=== PATIENT | male | born 1955 | race Caucasian/White ===

== ENCOUNTER → 2019-03-25 07:21 | Outpatient (CLI) | payer MEDICARE | END | disposition home or self-care (01) | LOC: D.US 07:21 | PROVIDERS: ATTEND Family Medicine | DX: R60.0 Localized edema (principal) ==

== ENCOUNTER 2020-04-30 07:00 | Day surgery (SDC) | payer MEDICARE ==
[2020-04-27 10:01] LABS: HEMATOCRIT 47.4 % (42.0-54.0); HEMOGLOBIN 16.2 g/dL (13.5-17.5); MCH 33.9 pg (26.0-34.0); MCHC 34.2 g/dL (31.0-37.0); MCV 99.2 fL (80.0-100.0); MEAN PLATELET VOLUME 9.7 fL (7.4-10.4); RBC 4.78 10x6/uL (4.20-6.10); RDW 13.7 % (11.5-14.5); WBC 9.7 10x3/uL (4.8-10.8)
[2020-04-27 10:16] LABS: APTT 29.7 SECONDS (22.8-39.4); PROTIME 13.2 SECONDS (11.6-15.0)
[~2020-04-30] VITALS: Ht 180.3 cm; Wt 99.8 kg
[~2020-04-30 07:00] MED LIST: AGGRENOX 200/251 CAP PO; ALTACE10 MG PO; AZELASTINE137 MCG/0. NASAL; CRESTOR40 MG PO; FUROSEMIDE20 MG PO; KLONOPIN1 MG PO; LEXAPRO10 MG PO; LIPITOR40 MG PO; LOPRESSOR25 MG PO; NORVASC5 MG PO; PLAVIX75 MG PO
[2020-04-30 07:49] VITALS: BP 138/74; Ht 180.3 cm; Wt 99.8 kg
[2020-04-30] MEDS ORDERED: HYDROCODON-ACE1 EA10 PO (12:10)
--- NOTE | 2020-04-30 16:02 | NUR ---
1330 IV DC'D. CATHETER TIP INTACT. NO BLEEDING AT SITE. BANDAID APPLIED.
--- NOTE | 2020-05-03 07:08 | OP ---
PATIENT NAME: RENAN ECHEVERRIA MEDICAL RECORD: [id number] :53 LOCATION:D.OPS ADMISSION DATE: SURGEON: XIOMY VILLANUEVA MD DATE OF OPERATION: 04/30/2020 PREOPERATIVE DIAGNOSIS: Left olecranon bursitis. POSTOPERATIVE DIAGNOSIS: Left olecranon bursitis. PROCEDURE: Left olecranon bursectomy. SURGEON: Xiomy Villanueva MD STATE DIRECTOR: JOSE Wadsworth INTRAOPERATIVE COMPLICATIONS: None. SUMMARY OF PATHOLOGIC FINDINGS: The patient had what felt to be more like a nodular firm bursitis then fluid-filled bursitis, it perhaps is more of a bursal mass; however, sent in its entirety to pathology for further evaluation. OPERATIVE SUMMARY IN DETAIL: After obtaining the appropriate preoperative orthopedic surgery consent as well as anesthetic consultation, evaluation and clearance, the patient was brought to the operating room and placed on the operating table in supine position. After general laryngeal mask airway was administered, tourniquet was placed about the proximal aspect of the left upper extremity. Left upper extremity was then prepped and draped in routine sterile fashion. The arm was elevated and exsanguinated, tourniquet inflated to 250 mmHg. At this point, appropriate timeout was taken and agreed upon by all given the patient's unique identifiers. Incision was made directly over the mass. It was taken down both proximally, distally, laterally, and medially with very fine subcutaneous dissection in order to take the mass out in total. It was gently excised completely and sent for permanent specimen without rupturing or cutting into the mass/bursal sac itself. Wound was then copiously irrigated and closed with 2-0 Vicryl followed by 3-0 Prolene in interrupted fashion. Sterile dressings were applied. Tourniquet was deflated. The patient was awakened and taken to the recovery room in stable condition. All final needle and sponge counts were correct. TRANSINT:[id number] Voice Confirmation ID: [id number] DOCUMENT ID: [id number] XIOMY VILLANUEVA MD at 0708 CC: [id number] DICTATION DATE: 05/02/20 1302 BUS ESCORT: 05/02/20 2257 [facility] 04/30/20 [place] [address]
== END 2020-04-30 13:40 | disposition home or self-care (01) ==
LOC: D.OPS 07:00 → D.PAN 09:15 → D.OPS 10:05
PROVIDERS: Anesthesiology; ATTEND Orthopaedic Surgery
DX: M70.22 Olecranon bursitis, left elbow (principal); M25.522 Pain in left elbow

== ENCOUNTER 2020-05-31 05:39 | Day surgery (SDC) | payer MEDICARE ==
[~2020-05-31] VITALS: Ht 180.3 cm; Wt 102.1 kg
[~2020-05-31 05:39] MED LIST changes: +HYDROCODON-ACE1 EA10 PO
[2020-05-31 05:54] LABS: HEMATOCRIT 47.6 % (42.0-54.0); HEMOGLOBIN 16.1 g/dL (13.5-17.5); MCH 33.8 pg (26.0-34.0); MCHC 33.8 g/dL (31.0-37.0); MEAN PLATELET VOLUME 9.3 fL (7.4-10.4); RBC 4.76 10x6/uL (4.20-6.10); RDW 14.4 % (11.5-14.5); WBC 8.7 10x3/uL (4.8-10.8)
[2020-05-31 06:21] LABS: INR 0.99 (0.85-1.17)
[2020-05-31 07:12] VITALS: BP 121/59; Ht 180.3 cm; Wt 102.1 kg
[2020-05-31] MEDS ORDERED: HYDROCODON-ACE1 EA10 PO (08:28)
--- NOTE | 2020-05-31 11:37 | NUR ---
1020 IV D/C'D WITH CANNULA INTACT, PRESSURE HELD AND DRSG PLACED. DISCHARGE INSTRUCTIONS GIVEN AND PT AND VERBALIZED AN UNDERSTANDNG. DISCHARGED IN STABLE CONDITION WITH CDI DRSG AND WITHOUT C/O
--- NOTE | 2020-06-01 16:20 | OP ---
PATIENT NAME: RENAN ECHEVERRIA MEDICAL RECORD: [id number] :53 LOCATION:D.OPS ADMISSION DATE: SURGEON: XIOMY VILLANUEVA MD DATE OF OPERATION: 05/31/2020 PREOPERATIVE DIAGNOSES: Recurrent left elbow olecranon bursitis with postoperative hematoma. POSTOPERATIVE DIAGNOSES: Recurrent left elbow olecranon bursitis with postoperative hematoma. PROCEDURE: Revision of olecranon bursectomy with removal of hematoma and granulation tissue. SURGEON: Xiomy Villanueva MD ANESTHESIA: General. INTRAOPERATIVE COMPLICATIONS: None. SUMMARY OF PATHOLOGIC FINDINGS: Upon incising the patient's bursa again, the patient had copious amounts of hematoma with early granulation tissue into the bursal area itself. All hematoma was removed along with also recurrent granulation tissue and then a suture skin to bone technique was utilized for closure. OPERATIVE SUMMARY IN DETAIL: After obtaining the appropriate preoperative orthopedic surgery consent as well as anesthetic consultation, evaluation and clearance, the patient was brought to the operating room and placed on the operating table in supine position. After adequate general laryngeal mask was administered, tourniquet was placed on the proximal aspect of left upper extremity. Left upper extremity was prepped and draped in the usual sterile fashion. The arm was elevated and exsanguinated, tourniquet was inflated to 250 mmHg. Appropriate timeout was taken and agreed upon by all given the patient's unique identifiers. Incision was made over the previous incision, immediate hematoma was revealed. This was removed in its entirety with suction and curettage. After the incision was made large enough to expose the entire area, a combination of rongeur and curettage was utilized to debride any recurrent granulation tissue or any residual bursa. It was copiously irrigated and then closed first with 3-0 mattress Prolene and the second with 0 Prolene incorporating periosteum to the skin surface to close down the potential space and lastly with a 4-0 Prolene in running fashion over the apex of the incision. Having completed this, sterile dressings were applied. Tourniquet was deflated. The patient was placed in a posterior splint, awakened and taken to the recovery room in stable condition. All final needle and sponge counts were correct. TRANSINT:[id number] Voice Confirmation ID: [id number] DOCUMENT ID: [id number] OPERATIVE REPORT [id number] RENAN ECHEVERRIA MD, JAMES KEVIN at 1620 CC: [id number] DICTATION DATE: 05/31/20 0833 SCIENTIFIC DIVER: 05/31/20 1228 [facility] [place] 05/31/20 [id number] [place] [address]
== END 2020-05-31 10:25 | disposition home or self-care (01) ==
LOC: D.OPS 05:39
PROVIDERS: Anesthesiology; ATTEND Orthopaedic Surgery
DX: M70.22 Olecranon bursitis, left elbow (principal); E55.9 Vitamin D deficiency, unspecified; I10 Essential (primary) hypertension; E78.5 Hyperlipidemia, unspecified; M25.522 Pain in left elbow